=== PATIENT | male | born 1985 | race Two or more races ===

== ENCOUNTER 2022-12-24 12:03 | Emergency (ER) | payer OTHER ==
[~2022-12-24] VITALS: Ht 170.2 cm; Wt 73.6 kg
[2022-12-24 12:08] VITALS: TEMP 98.5
[2022-12-24 12:12] VITALS: BP 136/75; PULSE 68; RESP 18
== END 2022-12-24 13:00 | disposition home or self-care (01) ==
LOC: EMS 12:03
DX: S42.001A Fracture of unspecified part of right clavicle, initial encounter for closed fracture (principal); W19.XXXA Unspecified fall, initial encounter; Y93.89 Activity, other specified; Y92.89 Other specified places as the place of occurrence of the external cause; Y99.8 Other external cause status
CPT/HCPCS: 29105; 99283